=== PATIENT | male | born 1960 | race Two or more races ===

== ENCOUNTER 2016-04-26 22:00 | Emergency (ER) | payer OTHER ==
[~2016-04-26] VITALS: Ht 172.7 cm; Wt 81.6 kg
== END 2016-04-26 23:48 ==
LOC: EDBD 22:03 → ER 22:03
DX: I10 Essential (primary) hypertension; E11.9 Type 2 diabetes mellitus without complications; E78.00 Pure hypercholesterolemia, unspecified